=== PATIENT | female | born 1950 | race Caucasian/White ===

== ENCOUNTER 2016-08-22 08:12 | Day surgery (SDC) | payer MEDICARE, OTHER ==
[~2016-08-22] VITALS: Ht 160 cm; Wt 68.1 kg
[~2016-08-22 08:12] MED LIST: ESTR0.5T PO; METO-274 PO
[2016-08-22] MEDS ORDERED: HYDR-3089 PO (08:18)
[2016-08-22 08:30] VITALS: BP 137/94; PULSE 84; RESP 16; O2SAT 97
[2016-08-22 08:35] VITALS: BP 137/94; PULSE 84; RESP 16; O2SAT 97
[2016-08-22 08:40] VITALS: BP 137/94; PULSE 84; RESP 16; O2SAT 97
[2016-08-22 08:45] VITALS: BP 138/94; PULSE 82; RESP 16; O2SAT 97
--- NOTE | 2016-08-22 10:22 | NUR ---
Phlebotomy Phlebotomy performed without fail, VSS, denies dizziness. HCT 42.4
== END 2016-08-22 23:59 | disposition home or self-care (01) ==
LOC: MOCO 08:12
PROVIDERS: ATTEND Family Medicine
DX: E83.119 Hemochromatosis, unspecified (principal)